=== PATIENT | female | born 1960 | race Caucasian/White ===

== ENCOUNTER 2022-10-22 01:38 | Emergency (ER) | payer SELFPAY ==
[2022-10-22] MEDS ORDERED: HYDROcodone/Acetaminophen 5/325 mg Tablet ONE (02:14)
[2022-10-22] MEDS ORDERED: Ketorolac Tromethamine 30 MG/ML VIAL ONE (02:14)
[2022-10-22] MEDS ORDERED: predniSONE 20 MG TAB ONE (02:14)
== END 2022-10-22 03:23 | disposition home or self-care (01) ==
LOC: CSHERS 01:38
DX: M54.42 Lumbago with sciatica, left side (principal); M79.605 Pain in left leg
CPT/HCPCS: 96372; 99283; J1885; J7512

== ENCOUNTER 2024-03-27 09:26 | Emergency (ER) | payer SELFPAY ==
[2024-03-27] MEDS ORDERED: Morphine 4 MG/ML VIAL ONE (10:30)
[2024-03-27] MEDS ORDERED: Ondansetron PF 4 MG/2 ML Vial ONE (10:30)
[2024-03-27] MEDS ORDERED: Iopamidol 300 61% 100 ML VIAL FS ONE (10:31)
[2024-03-27] MEDS ORDERED: Pantoprazole 40 MG VIAL ONE (10:31)
[2024-03-27 11:16] LABS: #Basophils 0.05 10x3/uL (0.0-0.2); #Eosinphils 0.11 10x3/uL (0.0-0.5); #Monocytes 0.58 10x3/uL (0.0-1.1); #Neutrophils 5.63 10x3/uL (1.5-8.4); %Basophils 0.6 % (0.0-2.0); %Eosinophils 1.3 % (0.0-6.0); %Lymphocytes 26.2 % (18.0-47.0); %Monocytes 6.7 % (0.0-10.0); Hematocrit 43.1 % (34.9-44.5); Hemoglobin 15.1 g/dL (12.0-15.5); Mean Corpuscular Hemoglobin 30.8 pg (27.0-33.0); Platelet Count 293 10x3/uL (150-450); RBC Distribution Width 12.1 % (11.5-14.5); White Blood Cell (WBC) Count 8.7 10x3/uL (3.5-10.5)
[2024-03-27 11:32] LABS: ALT (SGPT) 46 U/L (8-55); AST (SGOT) 42 U/L (5-34); Albumin 4.4 g/dL (3.4-4.8); Alkaline Phosphatase 76 U/L (40-110); Anion Gap 15 mmol/L (10-20); BUN (Urea Nitrogen) 10 mg/dL (9.8-20.1); Bilirubin, Total 0.6 mg/dL (0.2-1.2); Calc. Creatinine Clearance 0 mL/min (70-130); Calcium 10.2 mg/dL (7.8-10.44); Carbon Dioxide 24 mmol/L (23-31); Chloride 103 mmol/L (98-107); Estimated GFR 66; Globulin 3.7 g/dL (2.4-3.5); Glucose 108 mg/dL (80-115); Lipase 13 U/L (8-78); Potassium 4.2 mmol/L (3.5-5.1); Protein, Total 8.1 g/dL (5.8-8.1); Sodium 138 mmol/L (136-145)
[2024-03-27 11:38] LABS: Troponin I Less than 0.010 ng/mL (< 0.028)
[2024-03-27 12:45] LABS: Bilirubin Neg (Negative); Blood, Urine 10 (Negative); Clarity Clear (Clear); Glucose, Urine (Dipstick) Normal (Negative); Ketone, Urine Negative (Negative); Leukocyte Negative (Negative); Nitrite Negative (Negative); Protein, Urine (Dipstick) Negative (Neg-Trace); Specific Gravity, Urine 1.005 (1.005-1.030); Urobilinogen Normal mg/dL (Less than 2); pH, Urine 6.5 (5.0-9.0)
[2024-03-27 13:09] LABS: CAUTI Indications for Culture Pelvic or flank pain; RBC/HPF 0-3 HPF (0-3); WBC/HPF 0-3 HPF (0-3)
[2024-03-27 13:10] LABS: Bacteria/HPF 1+ HPF (None Seen)
[2024-03-27 13:11] LABS: Urine Culture Reflex No No
== END 2024-03-27 13:03 | disposition home or self-care (01) ==
LOC: CSHERS 09:26
DX: M79.3 Panniculitis, unspecified (principal)
CPT/HCPCS: 71045; 74177; 80053; 81001; 83690; 84484; 85025; 93005; 96361; 96374; 96375; C9113; J2270; J2405; Q9967

== ENCOUNTER 2024-04-01 08:55 | Emergency (ER) | payer SELFPAY ==
[2024-04-01] MEDS ORDERED: fentaNYL 50 mcg/mL 1 mL Vial ONE (09:51)
[2024-04-01] MEDS ORDERED: Ondansetron PF 4 MG/2 ML Vial ONE (09:52)
[2024-04-01 09:55] LABS: #Basophils 0.04 10x3/uL (0.0-0.2); #Eosinphils 0.07 10x3/uL (0.0-0.5); #Monocytes 0.56 10x3/uL (0.0-1.1); #Neutrophils 4.33 10x3/uL (1.5-8.4); %Basophils 0.6 % (0.0-2.0); %Lymphocytes 25.7 % (18.0-47.0); %Monocytes 8.3 % (0.0-10.0); %Neutrophils 64.1 % (40.0-75.0); Hematocrit 43.7 % (34.9-44.5); Hemoglobin 15.3 g/dL (12.0-15.5); Mean Corpuscular Hemoglobin 31.5 pg (27.0-33.0); Mean Corpuscular Volume 89.9 fL (81.6-98.3); Platelet Count 270 10x3/uL (150-450); RBC Distribution Width 12.2 % (11.5-14.5); Red Blood Cell (RBC) Count 4.86 10x6/uL (3.90-5.03); White Blood Cell (WBC) Count 6.8 10x3/uL (3.5-10.5)
[2024-04-01] MEDS ORDERED: Iopamidol 300 61% 100 ML VIAL FS ONE (10:17)
[2024-04-01 10:28] LABS: ALT (SGPT) 48 U/L (8-55); AST (SGOT) 54 U/L (5-34); Albumin 4.2 g/dL (3.4-4.8); Alkaline Phosphatase 72 U/L (40-110); Anion Gap 14 mmol/L (10-20); BUN (Urea Nitrogen) 8 mg/dL (9.8-20.1); Bilirubin, Total 0.5 mg/dL (0.2-1.2); Calc. Creatinine Clearance 0 mL/min (70-130); Carbon Dioxide 24 mmol/L (23-31); Chloride 102 mmol/L (98-107); Estimated GFR 57; Globulin 3.8 g/dL (2.4-3.5); Glucose 102 mg/dL (80-115); Lipase 8 U/L (8-78); Potassium 4.2 mmol/L (3.5-5.1); Sodium 136 mmol/L (136-145)
[2024-04-01 10:30] LABS: Troponin I Less than 0.010 ng/mL (< 0.028)
[2024-04-01] MEDS ORDERED: Dicyclomine 20 MG/2 ML VIAL ONE (11:36)
[2024-04-01] MEDS ORDERED: Ketorolac Tromethamine 30 MG (1 mL) VIAL ONE (11:38)
[2024-04-01 11:43] LABS: Bilirubin Neg (Negative); Blood, Urine Negative (Negative); Clarity Clear (Clear); Glucose, Urine (Dipstick) Normal (Negative); Ketone, Urine Negative (Negative); Leukocyte Negative (Negative); Nitrite Negative (Negative); Protein, Urine (Dipstick) Negative (Neg-Trace); Specific Gravity, Urine 1.005 (1.005-1.030); Urobilinogen Normal mg/dL (Less than 2)
[2024-04-01 12:05] LABS: Bacteria/HPF 2+ HPF (None Seen); CAUTI Indications for Culture Pelvic or flank pain; RBC/HPF 0-3 HPF (0-3); WBC/HPF 0-3 HPF (0-3)
[2024-04-01 12:06] LABS: Urine Culture Reflex No No
== END 2024-04-01 12:32 | disposition home or self-care (01) ==
LOC: CSHERS 08:55
DX: R10.9 Unspecified abdominal pain (principal); M79.3 Panniculitis, unspecified
CPT/HCPCS: 71045; 74177; 80053; 81001; 83605; 83690; 84484; 85025; 93005; 96372; 96374; 96375; J1885; J2405; J3010; Q9967

== ENCOUNTER 2024-04-01 22:11 | Inpatient (IN) | payer SELFPAY ==
[2024-04-01] MEDS ORDERED: Morphine 4 MG/ML VIAL ONE (23:06)
[2024-04-01] MEDS ORDERED: Morphine 2 MG/ML VIAL ONE (23:06)
[2024-04-01 23:34] LABS: #Basophils 0.06 10x3/uL (0.0-0.2); #Eosinphils 0.08 10x3/uL (0.0-0.5); #Monocytes 0.64 10x3/uL (0.0-1.1); %Basophils 0.8 % (0.0-2.0); %Monocytes 8.3 % (0.0-10.0); %Neutrophils 62.6 % (40.0-75.0); Hematocrit 40.3 % (34.9-44.5); Hemoglobin 14.3 g/dL (12.0-15.5); Mean Corpuscular HGB CONC 35.5 g/dL (32.0-36.0); Mean Corpuscular Hemoglobin 31.6 pg (27.0-33.0); Mean Corpuscular Volume 89.2 fL (81.6-98.3); Mean Platelet Volume 11.3 fL (7.4-10.4); Platelet Count 279 10x3/uL (150-450); RBC Distribution Width 12.3 % (11.5-14.5); Red Blood Cell (RBC) Count 4.52 10x6/uL (3.90-5.03); White Blood Cell (WBC) Count 7.7 10x3/uL (3.5-10.5)
[2024-04-01 23:43] LABS: ALT (SGPT) 43 U/L (8-55); AST (SGOT) 41 U/L (5-34); Alkaline Phosphatase 70 U/L (40-110); Anion Gap 13 mmol/L (10-20); BUN (Urea Nitrogen) 8 mg/dL (9.8-20.1); Bilirubin, Total 0.4 mg/dL (0.2-1.2); Calc. Creatinine Clearance 0 mL/min (70-130); Calcium 9.8 mg/dL (7.8-10.44); Carbon Dioxide 24 mmol/L (23-31); Chloride 105 mmol/L (98-107); Estimated GFR 64; Globulin 3.4 g/dL (2.4-3.5); Glucose 104 mg/dL (80-115); Lipase 7 U/L (8-78); Potassium 3.8 mmol/L (3.5-5.1); Protein, Total 7.4 g/dL (5.8-8.1); Sodium 138 mmol/L (136-145)
[2024-04-02] MEDS ORDERED: Pantoprazole 40 MG VIAL ONE (00:22)
[2024-04-02] MEDS ORDERED: Morphine 2 MG/ML VIAL SLOW IVP PRN (03:41)
[2024-04-02] MEDS ORDERED: Morphine 4 MG/ML VIAL ONE (04:33)
[2024-04-02] MEDS: Morphine 4 MG/ML VIAL SLOW IVP PRN (04:38)
[2024-04-02 04:42] LABS: #Basophils 0.06 10x3/uL (0.0-0.2); #Eosinphils 0.12 10x3/uL (0.0-0.5); #Monocytes 0.75 10x3/uL (0.0-1.1); #Neutrophils 3.85 10x3/uL (1.5-8.4); %Basophils 0.8 % (0.0-2.0); %Eosinophils 1.7 % (0.0-6.0); %Lymphocytes 33.2 % (18.0-47.0); %Monocytes 10.4 % (0.0-10.0); %Neutrophils 53.6 % (40.0-75.0); Hematocrit 40.9 % (34.9-44.5); Hemoglobin 14.1 g/dL (12.0-15.5); Mean Corpuscular HGB CONC 34.5 g/dL (32.0-36.0); Mean Corpuscular Hemoglobin 31.1 pg (27.0-33.0); Mean Corpuscular Volume 90.3 fL (81.6-98.3); Platelet Count 238 10x3/uL (150-450); RBC Distribution Width 12.4 % (11.5-14.5); Red Blood Cell (RBC) Count 4.53 10x6/uL (3.90-5.03); White Blood Cell (WBC) Count 7.2 10x3/uL (3.5-10.5)
[2024-04-02 04:53] LABS: Anion Gap 12 mmol/L (10-20); BUN (Urea Nitrogen) 7 mg/dL (9.8-20.1); Calc. Creatinine Clearance 0 mL/min (70-130); Calcium 9.3 mg/dL (7.8-10.44); Carbon Dioxide 23 mmol/L (23-31); Chloride 109 mmol/L (98-107); Estimated GFR 73; Glucose 88 mg/dL (80-115); Magnesium 2.1 mg/dL (1.6-2.6); Potassium 3.8 mmol/L (3.5-5.1); Sodium 140 mmol/L (136-145)
[2024-04-02] MEDS: Potassium Chloride 20 MEQ in Lactated Ringer's 1,000 ML IV SCH (06:36)
[2024-04-02 08:48] VITALS: BMI 31.9
[2024-04-02] MEDS: Enoxaparin 40 MG (0.4 mL) SYRINGE SC SCH (09:55)
[2024-04-02] MEDS: Pantoprazole 40 MG VIAL IVP SCH (09:57)
[2024-04-03] MEDS: Ondansetron PF 4 MG/2 ML Vial IVP PRN (04:30)
[2024-04-03 05:13] LABS: ALT (SGPT) 33 U/L (8-55); AST (SGOT) 36 U/L (5-34); Albumin 3.4 g/dL (3.4-4.8); Alkaline Phosphatase 56 U/L (40-110); Anion Gap 10 mmol/L (10-20); BUN (Urea Nitrogen) 4 mg/dL (9.8-20.1); Bilirubin, Total 0.4 mg/dL (0.2-1.2); Calc. Creatinine Clearance 103 mL/min (70-130); Calcium 9.4 mg/dL (7.8-10.44); Carbon Dioxide 25 mmol/L (23-31); Chloride 107 mmol/L (98-107); Estimated GFR 81; Globulin 3.1 g/dL (2.4-3.5); Glucose 88 mg/dL (80-115); Potassium 4.1 mmol/L (3.5-5.1); Protein, Total 6.5 g/dL (5.8-8.1); Sodium 138 mmol/L (136-145)
[2024-04-03 05:30] LABS: INR-International Normal Ratio 1.1; Prothrombin Time 11.5 sec (9.5-12.1)
[2024-04-03 05:31] LABS: Hep B Surf Ag Non-Reactive S/CO (NonReactive)
[2024-04-03 05:33] LABS: #Basophils 0.04 10x3/uL (0.0-0.2); #Eosinphils 0.13 10x3/uL (0.0-0.5); #Monocytes 0.59 10x3/uL (0.0-1.1); #Neutrophils 3.02 10x3/uL (1.5-8.4); %Basophils 0.7 % (0.0-2.0); %Eosinophils 2.3 % (0.0-6.0); %Lymphocytes 33.2 % (18.0-47.0); %Monocytes 10.4 % (0.0-10.0); %Neutrophils 53.2 % (40.0-75.0); Hematocrit 38.1 % (34.9-44.5); Hemoglobin 12.7 g/dL (12.0-15.5); Mean Corpuscular HGB CONC 33.3 g/dL (32.0-36.0); Mean Corpuscular Hemoglobin 30.2 pg (27.0-33.0); Mean Corpuscular Volume 90.5 fL (81.6-98.3); Mean Platelet Volume 11.1 fL (7.4-10.4); Platelet Count 213 10x3/uL (150-450); RBC Distribution Width 12.5 % (11.5-14.5); Red Blood Cell (RBC) Count 4.21 10x6/uL (3.90-5.03); White Blood Cell (WBC) Count 5.7 10x3/uL (3.5-10.5)
[2024-04-03 06:33] LABS: Iron 52 ug/dL (50-170); Iron Binding Capacity, Total 291 mcg/dL (265-497)
[2024-04-03 13:42] LABS: Hep C IgG Ab NONREACTIVE S/CO (NonReactive); Hep C Index 0.22 S/CO (0-0.79)
[2024-04-03 14:22] LABS: HBCM Index 0.08 S/CO (0-0.79); HBSAB Concentration Less than 8.00 mIU/mL; Hep A IgM AB NONREACTIVE (NonReactive); Hep A IgM S/CO 0.27 S/CO (0-0.79); Hep B Surf AB NONREACTIVE (NonReactive); Hepatitis B Core IgM Abs NONREACTIVE S/CO (NonReactive)
[2024-04-03] MEDS ORDERED: PROPOFOL 20 ML ONE (16:06)
[2024-04-03] MEDS ORDERED: Lidocaine 1% PF 5 ML VIAL ONE (16:07)
[2024-04-03] MEDS ORDERED: Pepto Bismol Chew TAB PO PRN (23:02)
[2024-04-04] MEDS: Loperamide HCl 2 MG CAP PO SCH (00:08)
[2024-04-04] MEDS: Acetaminophen 500 MG TAB PO SCH (08:55)
[2024-04-04 10:34] LABS: Hepatitis A Total ABS Negative (Negative)
[2024-04-04 12:22] LABS: Troponin I Less than 0.010 ng/mL (< 0.028)
[2024-04-04 12:32] LABS: ANA Symphony (Qualitative) Negative (Negative); ANA Symphony (Quantitative) 0.3 Ratio (< 0.7 Negative); EliA Vaculitis New Method **** NEW METHOD ****; Mitochondrial Ab 1.1 U/mL (<4 Negative); dsDNA IgG Antibody 4.7 IU/mL (<10 Negative)
[2024-04-04] MEDS ORDERED: Iopamidol 370 76% 100 ML VIAL ONE (13:06)
[2024-04-04 16:53] VITALS: BP 134/68; TEMP 98
[2024-04-05 05:13] LABS: Alpha-1-Antitrypsin 140 mg/dL (101-187)
[2024-04-06 09:37] LABS: Smooth Muscle Total ABS 3 Units (0-19)
== END 2024-04-04 16:45 | disposition home or self-care (01) | DRG 395 ==
LOC: CSHERS 22:11 → CSHERHOLD 04-02 00:32 → CSHTELE 04-02 08:47
PROVIDERS: ADMIT Family Medicine; ATTEND Hospitalist
PROC: 0DB68ZX Excision of Stomach, Via Natural or Artificial Opening Endoscopic, Diagnostic (ICD-10-PCS; principal; 2024-04-03)
DX: K65.4 Sclerosing mesenteritis (principal); K31.7 Polyp of stomach and duodenum; K44.9 Diaphragmatic hernia without obstruction or gangrene; K21.9 Gastro-esophageal reflux disease without esophagitis; Z90.49 Acquired absence of other specified parts of digestive tract; Z90.710 Acquired absence of both cervix and uterus; Z88.8 Allergy status to other drugs, medicaments and biological substances; E86.0 Dehydration; Z98.51 Tubal ligation status; F41.9 Anxiety disorder, unspecified
CPT/HCPCS: 36415; 74174; 80048; 80053; 80074; 82103; 83516; 83540; 83550; 83605; 83690; 83735; 84484; 85025; 85610; 86015; 86038; 86140; 86225; 86706; 86708; 88305; 93005; 93010; 96374; 96375; C9113; J1650; J2270; J2272; J2405; J2704; J3480; J7120; Q9967

== ENCOUNTER 2024-09-02 09:32 | Emergency (ER) | payer OTHER, SELFPAY ==
[2024-09-02] MEDS ORDERED: methylPREDNISolone Sod Succ/PF 125 MG/2 ML VIAL ONE (10:12)
[2024-09-02 10:25] LABS: #Basophils 0.01 10x3/uL (0.0-0.2); #Monocytes 0.61 10x3/uL (0.0-1.1); #Neutrophils 2.15 10x3/uL (1.5-8.4); %Basophils 0.2 % (0.0-2.0); %Lymphocytes 33.7 % (18.0-47.0); %Monocytes 14.6 % (0.0-10.0); %Neutrophils 51.3 % (40.0-75.0); Hematocrit 41.3 % (34.9-44.5); Mean Corpuscular HGB CONC 33.9 g/dL (32.0-36.0); Mean Corpuscular Hemoglobin 29.2 pg (27.0-33.0); Mean Corpuscular Volume 86.2 fL (81.6-98.3); Mean Platelet Volume 10.3 fL (7.4-10.4); Platelet Count 211 10x3/uL (150-450); RBC Distribution Width 11.8 % (11.5-14.5); Red Blood Cell (RBC) Count 4.79 10x6/uL (3.90-5.03); White Blood Cell (WBC) Count 4.2 10x3/uL (3.5-10.5)
[2024-09-02 10:35] LABS: Anion Gap 17 mmol/L (10-20); BUN (Urea Nitrogen) 12 mg/dL (9.8-20.1); Calc. Creatinine Clearance 0 mL/min (70-130); Calcium 8.7 mg/dL (7.8-10.44); Carbon Dioxide 20 mmol/L (23-31); Chloride 100 mmol/L (98-107); Estimated GFR 69; Glucose 89 mg/dL (80-115); Potassium 3.5 mmol/L (3.5-5.1); Sodium 133 mmol/L (136-145)
[2024-09-02 10:42] LABS: Troponin I Less than 0.010 ng/mL (< 0.028)
[2024-09-02] MEDS ORDERED: Ipratropium/Albuterol 3 ML NEB ONE (11:47)
== END 2024-09-02 12:34 | disposition home or self-care (01) ==
LOC: CSHERS 09:32
DX: J11.1 Influenza due to unidentified influenza virus with other respiratory manifestations (principal)
CPT/HCPCS: 36415; 71045; 80048; 83880; 84484; 85025; 87428; 93005; 93010; 94640; 94760; 96374; J2919; J7620

== ENCOUNTER 2025-07-06 05:46 | Emergency (ER) | payer MEDICARE, SELFPAY ==
[2025-07-06 06:20] LABS: Glucose, Urine (Dipstick) Normal (Negative); Leukocyte Negative (Negative); Protein, Urine (Dipstick) 15 mg/dl (Neg-Trace); Specific Gravity, Urine 1.005 (1.005-1.030)
[2025-07-06] MEDS ORDERED: Ondansetron PF 4 MG/2 ML Vial ONE (06:35)
[2025-07-06 06:38] LABS: #Basophils 0.06 10x3/uL (0.0-0.2); #Eosinophils 0.11 10x3/uL (0.0-0.5); #Monocytes 0.68 10x3/uL (0.0-1.1); #Neutrophils 5.02 10x3/uL (1.5-8.4); %Basophils 0.7 % (0.0-2.0); %Eosinophils 1.3 % (0.0-6.0); %Lymphocytes 29.5 % (18.0-47.0); %Monocytes 8.1 % (0.0-10.0); %Neutrophils 60.0 % (40.0-75.0); Hematocrit 44.7 % (34.9-44.5); Hemoglobin 15.1 g/dL (12.0-15.5); Mean Corpuscular Hemoglobin 30.1 pg (27.0-33.0); Mean Corpuscular Volume 89.2 fL (81.6-98.3); Platelet Count 308 10x3/uL (150-450); Red Blood Cell (RBC) Count 5.01 10x6/uL (3.90-5.03); White Blood Cell (WBC) Count 8.37 10x3/uL (3.5-10.5)
[2025-07-06 06:50] LABS: Bacteria/HPF 1+ HPF (None Seen); CAUTI Indications for Culture Pelvic or flank pain; RBC/HPF 0-3 HPF (0-3); WBC/HPF 0-3 HPF (0-3)
[2025-07-06 06:51] LABS: Urine Culture Reflex No No; Yeast-Budding 1+ HPF (None Seen)
[2025-07-06 06:53] LABS: ALT (SGPT) 49 U/L (Less than 34); AST (SGOT) 46 U/L (11-34); Albumin 4.4 g/dL (3.1-4.5); Alkaline Phosphatase 74 U/L (40-110); Anion Gap 16 mmol/L (10-20); BUN (Urea Nitrogen) 11 mg/dL (9.8-20.1); Bilirubin, Total 0.8 mg/dL (0.3-1.2); Calc. Creatinine Clearance 0 mL/min (70-130); Calcium 10.1 mg/dL (7.8-10.44); Carbon Dioxide 22 mmol/L (23-31); Chloride 105 mmol/L (98-107); Globulin 4.2 g/dL (2.4-3.5); Glucose 110 mg/dL (80-115); Lipase 13 U/L (8-78); Potassium 3.6 mmol/L (3.5-5.1); Sodium 139 mmol/L (136-145)
[2025-07-06] MEDS ORDERED: Famotidine/PF 20 mg/2ml Vial ONE (08:24)
[2025-07-06] MEDS ORDERED: Mag-Al 1200 mg/1200 mg/30 ML UDCUP ONE (08:32)
[2025-07-06] MEDS ORDERED: Lidocaine Viscous Sol 2% 15 ml UD Cup ONE (08:33)
[2025-07-06] MEDS ORDERED: Iopamidol 370 76% 100 ML VIAL ONE (10:04)
== END 2025-07-06 08:58 | disposition home or self-care (01) ==
LOC: CSHERS 05:46
DX: R10.13 Epigastric pain (principal); R11.2 Nausea with vomiting, unspecified
CPT/HCPCS: 74177; 80053; 81001; 83690; 85025; 93005; 93010; 96374; 96375; J1308; J2405; Q9967